=== PATIENT | male | born 1990 | race Caucasian/White ===

== ENCOUNTER 2019-08-12 11:09 | Emergency (ER) | payer SELFPAY ==
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
[2019-08-12] MEDS ORDERED: SILVER SULFADIAZINE 1% CREAM 25 GM TP ONE (12:09)
[2019-08-12 13:03] VITALS: BP 104/73
== END 2019-08-12 13:03 | disposition home or self-care (01) ==
LOC: ER 11:09
DX: T23.241A Burn of second degree of multiple right fingers (nail), including thumb, initial encounter (principal); X08.8XXA Exposure to other specified smoke, fire and flames, initial encounter
CPT/HCPCS: 99283